=== PATIENT | male | born 1975 | race African-American/Black ===

== ENCOUNTER 2016-12-25 17:57 | Inpatient (IN) ==
[2016-12-25] MEDS ORDERED: Acetaminophen 325 MG TABLET PO PRN (20:08)
[2016-12-25] MEDS ORDERED: *HR* HYDROmorphone (PF) 1 MG/ML SYRINGE IVP PRN (20:08)
[2016-12-25] MEDS ORDERED: *HR* Promethazine 25 MG/ML VIAL IVP PRN (20:08)
[2016-12-25] MEDS ORDERED: Ondansetron 4 MG/2 ML VIAL IVP PRN (20:08)
[2016-12-25] MEDS ORDERED: Naloxone 0.4 MG/ML INJ IVP PRN (20:08)
[2016-12-25] MEDS ORDERED: Dextrose Gel 15 GM PO PRN ×2 (20:14)
[2016-12-25] MEDS ORDERED: D5% in Water 1,000 ML IVC PRN (20:14)
[2016-12-25] MEDS ORDERED: *HR* Dextrose 50 % in Water (Syg) 50 ML SYRINGE IVP PRN (20:14)
[2016-12-25] MEDS: 0.9 % Sodium Chloride 1,000 ML IVC SCH (20:40)
[2016-12-25] MEDS ORDERED: Lidocaine 1% 20 ML MDV INFILT PRN (20:52)
[2016-12-25 20:57] LABS: Basophils # 0.1 K/mcL (0.0-0.2); Basophils % 0.3 %; Eosinophils % 0.1 %; Hematocrit 37.4 % (37.5-50.1); Hemoglobin 12.2 g/dL (12.9-16.9); Immature Granulocytes % 0.8 % (0-4); Immature Platelets 2.4 % (1.1-6.1); Lymphocytes # 1.7 K/mcL (0.6-4.6); Lymphocytes % 9.1 %; Mean Corpuscular HGB Conc 32.6 g/dL (31.6-35.5); Mean Corpuscular Hemoglobin 26.8 pg (28.0-33.3); Mean Corpuscular Volume 82.2 fL (83.0-100.0); Monocytes # 2.4 K/mcL (0.0-1.3); Monocytes % 12.3 %; Neutrophils # 14.8 K/mcL (1.6-8.9); Platelet Count 325 K/mcL (140-400); Red Blood Count 4.55 M/mcL (4.19-5.50); Red Cell Distribution Width 16.8 % (11.5-14.5); Segmented Neutrophils % 77.4 %
[2016-12-25] MEDS ORDERED: *HR* HYDROmorphone 2 MG/ML SYRINGE IVP ONE ×2 (20:58→21:18)
[2016-12-25] MEDS ORDERED: Vancomycin 1,500 MG in D5% in Water 250 ML IVPB SCH (21:00)
[2016-12-25] MEDS: *HR* HYDROcodone/Acet 5/325 mg TABLET PO PRN (21:06)
[2016-12-25 21:07] LABS: INR 1.2; Prothrombin Time 12.7 Seconds (9.4-12.1)
[2016-12-25 21:08] LABS: BUN/Creatinine Ratio 11 (6-26); Blood Urea Nitrogen 10 mg/dL (8-26); Calcium 9.2 mg/dL (8.6-10.8); Carbon Dioxide 28 mEq/L (19-29); Chloride 96 mEq/L (98-109); Glucose 149 mg/dL (70-99); Osmolality,Calculated 282 (280-300); Potassium 4.1 mEq/L (3.5-4.5); Sodium 135 mEq/L (136-145); eGFR For African Americans > 60 (> 60); eGFR For Non-African Americans > 60 (> 60)
[2016-12-25] MEDS: Insulin LISPRO 300 UNITS/3 ML VIAL SQ SCH (21:08)
[2016-12-25] MEDS ORDERED: *HR* HYDROmorphone (PF) 1 MG/ML SYRINGE ONE (21:18)
[2016-12-25 21:22] LABS: Anisocytosis 1+ (Not Present); Large Platelets Present (Not Present); Platelet Estimate Normal (Normal)
[2016-12-25] MEDS ORDERED: *HR* HYDROcodone/Acet 5/325 mg TABLET PO ONE (21:37)
--- NOTE | 2016-12-25 22:07 | Internal Med History&Physical ---
Date of Encounter: 12/25/16 Time of Encounter: 20:30 Assessment and Plan (1) Severe sepsis Current visit: Yes Status: Acute Will admit the pt into tele He does meet severe sepsis criteria Lactic started trending down Cont IV NS @ 150cc/hr Diabetic diet Reviewed Rt foot x ray Spoke to Professor Of Family Medicine who just came up and did bed side I & D..Possible OR in AM NPO after mid night started him on broad spec abx Zosyn and Vanco sent for wound cx f/u on blood cx from [facility] Will get MRI of Rt foot in AM X ray is little concerning for osteomyelitis for me will check ESR and CRP in AM (2) Foot abscess, right Current visit: Yes Status: Acute Professor Of Family Medicine on board (3) Gangrene of right foot Current visit: Yes Status: Acute (4) DM2 (diabetes mellitus, type 2) Current visit: Yes Status: Chronic Placed him on ISS hold PO meds for now check HbA1C in AM Qualifiers: Qualified Code(s): E11.9 - Type 2 diabetes mellitus without complications (5) HTN (hypertension) Current visit: Yes Status: Chronic resumed home meds Qualifiers: Qualified Code(s): I10 - Essential (primary) hypertension (6) HLD (hyperlipidemia) Current visit: Yes Status: Chronic resumed home meds Qualifiers: Qualified Code(s): E78.5 - Hyperlipidemia, unspecified (7) DVT prophylaxis Current visit: Yes Status: Acute on lovenox SQ Internal Medicine - H&P: HPI Chief complaint: Sepsis, Rt foot abscess Admitted From: Emergency Dept Plans for Post Hospital Care: Home History of present illness: Mr. Ortega is a 41 year old male with known PMH of HTN, HLD, DM2, h/o Rt foot chronic healed wound now presented to [facility] with c/o worsening swelling and pain in Rt foot from last 2 days. He did notice swelling in the Rt foot for 10 days which progressively worsened now and unable to bare weight on it. He had X ray foot done at ER which showed large amout of soft tiisue swelling with gas in medial and plantar soft tissue of distal foot. Pt was transferred to our hospital for further care. Pt does c/o 10/10 pain. Denied any trauma. Past Med Surg Social Fam HX - Past Medical History Medical history: diabetes, hyperlipidemia, hypertension Psychiatric history: no psych history - Social History Smoking Status: Current every day smoker Packs per day: 1 Smokeless Tobacco Status: No Alcohol use: none Drug use: opiates, marijuana, IV Drug Use - Family History Mother History Unknown: Yes Adopted: No Living Status: Age at : 76 Cause of : natural causes Internal Medicine - H&P: Meds Lisinopril 30 mg PO 1-2XD 10/21/16 [History] Simvastatin [Zocor] 10 mg PO 1-2XD 10/21/16 [History] cloNIDine HCl [CloNIDine HCl] 0.1 mg PO ONCE 10/21/16 [History] metFORMIN [Glucophage] 1,000 mg PO BIDWM 10/21/16 [History] GlipiZIDE 12/25/16 [History] 3 Allergy/AdvReac Type Severity Reaction Status Date / Time No Known Allergies Allergy Verified 10/21/16 00:47 All Systems PM: A 10-system review of systems was performed and is negative for pertinent findings except as documented above in the HPI. Review of systems: All the systems are reviewed everything is benign except the systems and symptoms I mentioned in the history of present illness - Constitutional Vitals: Temp Pulse Resp BP Pulse Ox 102 F H 105 19 143/80 100 12/25/16 19:40 12/25/16 19:40 12/25/16 19:40 12/25/16 19:40 12/25/16 19:40 General appearance: Present: mild distress (due to pain), A&O X 3, answers questions appropriately - Head Head exam: Present: atraumatic, normal inspection - Neck Neck exam general surgery: Present: supple - Respiratory Respiratory exam: Present: decreased breath sounds. Absent: rales, respiratory distress, rhonchi - Cardiovascular Cardiovascular exam: Present: RRR, +S1, +S2. Absent: systolic murmur - GI/Abdominal GI/Abdominal exam: Present: normal bowel sounds, soft. Absent: distended, rebound, rigid, tenderness - Extremities Exam Extremities exam: Present: tenderness. Absent: calf tenderness, pedal edema Additional comments: He does have 5x6cm size fluid / pus filled fluctuated abscess over Rt foot planter region at the base of 1st and 2nd metatarsal bones. Also noticed chronic healed wound in the middle of swelling. Erythema over dorsum of foot noticed - Expanded Lower Extremities Exam Foot/Toe exam: Present: swelling, tenderness (Rt foot distally) - Back Exam Back exam: Absent: CVA tenderness (L), CVA tenderness (R) - Psychiatric Psychiatric exam: Present: normal affect, normal mood Internal Med - H&P Results - Labs CBC & Chem 7: 12/25/16 20:44 12/25/16 20:44 Labs: Short CBC 12/25/16 Range/Units 20:44 WBC 19.1 H (4.3-11.1) K/mcL Hgb 12.2 L D (12.9-16.9) g/dL Hct 37.4 L (37.5-50.1) % Plt Count 325 (140-400) K/mcL Neutrophils # 14.8 H (1.6-8.9) K/mcL BMP 12/25/16 20:44 Sodium 135 L Potassium 4.1 Chloride 96 L Carbon Dioxide 28 BUN 10 Creatinine 0.95 Glucose 149 H Calcium 9.2
--- NOTE | 2016-12-25 23:08 | Podiatry Consult Note ---
Date of Encounter: 12/25/16 Time of Encounter: 23:06 Assessment and Plan (1) Foot abscess, right Current visit: Yes Status: Acute After reviewing the radiographs and determining that there is gas in the soft tissues the decision was made to perform an incision and drainage immediately at bedside to avoid further necrosis. The patient was instructed that due to the severity of the infection, we would need to perform immediately and drain the site. The patient was agreeable. The procedure discussed was incision and drainage of right foot abscess.Patient was informed of the risks and complications of surgery. These may include but are not limited to the following ; nerve damage, numbness, tingling, RSD/CRPS, loss of motor function, loss of toe, loss of limb, loss of life, ischemia, wound healing issues, infection, scarring, keloid formation, continued pain, arthritis, non-union, mal-union, prominent hardware, displaced hardware, reaction to hardware, the need to remove hardware, bruising, continued limp, the need for future surgery, over correction, under correction, chronic swelling, the need for physical therapy, stiffness of joints, ulceration, slow healing, wound dehiscence, reaction to implant, reaction to sutures. The patient was given the option to seek a second opinion. It was explained that surgery is an art and not an exact science therefore results cannot be guaranteed. All the patients questions and concerns were addressed. Patient agrees to have the surgery despite the possible risks and complications. Absolutely no guarantees were given or implied. A timeout was performed and the site was prepped with Betadine. A posterior tibial nerve block was performed utilizing 10 mL of 1% lidocaine plain. A 15 blade was utilized to incise at the abscess site. Fluid from the abscess was noted to be under pressure and was associated with gas, there was a significantly awful foul odor associated with it as well. The grayish brown fluid drained out and deep cultures were obtained. The epidermis surrounding a 7 cm ulceration was sharply debrided with a 15 blade scalpel. Additional debridement was performed consisting of epidermis, dermis, subcutaneous, fascia. At this time there was not noted to be any bony involvement. After the site was sufficiently opened it was irrigated and Betadine was utilized to further clean the site. Betadine soaked 4 x 4's were applied along with Kerlix. The patient will minimize weightbearing. The patient was instructed that we may have to perform additional surgery tomorrow depending on his improvement. If we do additional surgery tomorrow he will be nothing by mouth once he has had breakfast. We will likely perform additional washout/debridement utilizing the Misonix debrider. Due to the significant tissue loss the patient may require a wound VAC after surgery as well. The patient will likely benefit from long-term antibiotics for which an ID consult will be beneficial. History of Present Illness Chief complaint: Right foot wound HPI: Mr. Ortega is a 41 year old male who relates that he has had increasing pain in his right foot. Patient relates that he is not aware of any open lesion. Patient relates that his right foot began to get more and more swollen and painful. Past Med Surg Social Fam HX - Past Medical History Medical history: diabetes, hyperlipidemia, hypertension Psychiatric history: no psych history - Social History Smoking Status: Current every day smoker Packs per day: 1 Smokeless Tobacco Status: No Alcohol use: none Drug use: opiates, marijuana, IV Drug Use - Family History Mother History Unknown: Yes Adopted: No Living Status: Age at : 76 Cause of : natural causes Medications and Allergies Lisinopril 30 mg PO 1-2XD 10/21/16 [History] Simvastatin [Zocor] 10 mg PO 1-2XD 10/21/16 [History] cloNIDine HCl [CloNIDine HCl] 0.1 mg PO ONCE 10/21/16 [History] metFORMIN [Glucophage] 1,000 mg PO BIDWM 10/21/16 [History] GlipiZIDE 12/25/16 [History] 3 Allergy/AdvReac Type Severity Reaction Status Date / Time No Known Allergies Allergy Verified 10/21/16 00:47 All Systems Reviewed: A 10-system review of systems was performed and is negative for pertinent findings except as documented above in the HPI. Physical Exam - Constitutional Vitals: Temp Pulse Resp BP Pulse Ox 102 F H 105 19 143/80 100 12/25/16 19:40 12/25/16 19:40 12/25/16 19:40 12/25/16 19:40 12/25/16 19:40 Exam: The patient is awake, alert, and oriented 3. Pedal pulses are palpable. Capillary fill time is intact to digits 1 through 5 bilaterally. There are no open lesions, abrasions, or ulcerations. Sensation is significantly diminished to bilateral lower extremities although there is hypersensitivity around the infection site consistent with infection. There is noted to be gas in the soft tissue sub-first met head. Approximately 7 cm in diameter and extending into the superficial skin planes. After the site was debrided there is noted to be significant necrotic tissue and grayish brown discharge with significant foul odor. The final wound size measured approximately 7 cm in diameter. Full- thickness in depth. Results - Labs Result Diagrams: 12/25/16 20:44 12/25/16 20:44 Labs: Abnormal lab results WBC 19.1 K/mcL (4.3-11.1) H 12/25/16 20:44 Hgb 12.2 g/dL (12.9-16.9) L D 12/25/16 20:44 Hct 37.4 % (37.5-50.1) L 12/25/16 20:44 MCV 82.2 fL (83.0-100.0) L 12/25/16 20:44 MCH 26.8 pg (28.0-33.3) L 12/25/16 20:44 RDW 16.8 % (11.5-14.5) H 12/25/16 20:44 MPV 9.0 fL (9.4-12.4) L 12/25/16 20:44 Neutrophils # 14.8 K/mcL (1.6-8.9) H 12/25/16 20:44 Monocytes # 2.4 K/mcL (0.0-1.3) H 12/25/16 20:44 Large Platelets Present (Not Present) A 12/25/16 20:44 Anisocytosis 1+ (Not Present) A 12/25/16 20:44 PT 12.7 Seconds (9.4-12.1) H 12/25/16 20:44 Sodium 135 mEq/L (136-145) L 12/25/16 20:44 Chloride 96 mEq/L (98-109) L 12/25/16 20:44 Glucose 149 mg/dL (70-99) H 12/25/16 20:44 Lactic Acid 3.2 mmol/L (0.5-2.2) H 12/25/16 20:44 Magnesium 1.1 mg/dL (1.6-2.6) L 12/25/16 20:44 H & H 12/25/16 Range/Units 20:44 Hgb 12.2 L D (12.9-16.9) g/dL Hct 37.4 L (37.5-50.1) % All other labs normal. Consult Discharge Plan - Plan Referrals: Nargis Cruz, PROPERTY MANAGEMENT SPECIALIST [Primary Care Provider] -
[2016-12-26] MEDS: *HR* HYDROmorphone 2 MG/ML SYRINGE IVP PRN ×4 (01:13→23:20)
[2016-12-26] MEDS: Piperacillin/Tazobactam 3.375 GM in D5% in Water (Mini-Bag+) 100 ML IVPB SCH ×3 (01:13→22:56)
[2016-12-26] MEDS: *HR* HYDROcodone/Acet 5/325 mg TABLET PO PRN ×3 (02:28→15:24)
[2016-12-26] MEDS: Vancomycin 1,500 MG in D5% in Water 250 ML IVPB SCH ×2 (03:35→18:00)
[2016-12-26] MEDS: 0.9 % Sodium Chloride 1,000 ML IVC SCH ×2 (03:36→15:58)
[2016-12-26 03:43] LABS: Basophils # 0.1 K/mcL (0.0-0.2); Basophils % 0.3 %; Eosinophils % 0.1 %; Hematocrit 35.3 % (37.5-50.1); Hemoglobin 11.6 g/dL (12.9-16.9); Immature Granulocytes % 0.5 % (0-4); Lymphocytes # 1.9 K/mcL (0.6-4.6); Lymphocytes % 10.1 %; Mean Corpuscular HGB Conc 32.9 g/dL (31.6-35.5); Mean Corpuscular Hemoglobin 26.9 pg (28.0-33.3); Mean Corpuscular Volume 81.9 fL (83.0-100.0); Mean Platelet Volume 9.4 fL (9.4-12.4); Monocytes # 2.5 K/mcL (0.0-1.3); Monocytes % 13.9 %; Neutrophils # 13.8 K/mcL (1.6-8.9); Platelet Count 302 K/mcL (140-400); Red Blood Count 4.31 M/mcL (4.19-5.50); Red Cell Distribution Width 16.7 % (11.5-14.5); Segmented Neutrophils % 75.1 %
[2016-12-26 03:58] LABS: BUN/Creatinine Ratio 12 (6-26); Blood Urea Nitrogen 10 mg/dL (8-26); Calcium 8.9 mg/dL (8.6-10.8); Carbon Dioxide 27 mEq/L (19-29); Chloride 98 mEq/L (98-109); Glucose 146 mg/dL (70-99); Osmolality,Calculated 278 (280-300); Potassium 3.7 mEq/L (3.5-4.5); Sodium 133 mEq/L (136-145); eGFR For African Americans > 60 (> 60); eGFR For Non-African Americans > 60 (> 60)
[2016-12-26] MEDS: Famotidine 20 MG/2 ML VIAL IVP SCH ×2 (06:07→18:00)
[2016-12-26] MEDS: *HR* Enoxaparin 40 MG/0.4 ML SYRINGE SQ SCH (06:07)
[2016-12-26] MEDS ORDERED: Magnesium Sulfate 2 GM in D5% in Water 100 ML IVPB ONE (08:31)
[2016-12-26] MEDS: Insulin LISPRO 300 UNITS/3 ML VIAL SQ SCH ×5 (08:40→23:33)
--- NOTE | 2016-12-26 10:38 | Internal Med Progress Note ---
<Antonio Moreira - Last Filed: 12/26/16 15:11> Date of Encounter: 12/26/16 Time of Encounter: 09:00 - Assessment and plan (1) Severe sepsis Current Visit: Yes Status: Acute Assessment and plan: Severe sepsis secondary to right foot gangrene and abscess Blood cell count 18.3, temp 100.7, heart rate 91 over night Lactic acid is trending downward. Continued IV normal saline but decrease to 75ml/hr Continue IV Zosyn and vancomycin Infectious disease and podiatry on board (2) Foot abscess, right Current Visit: Yes Status: Acute Assessment and plan: Right foot abscess status post incision and drainage See below for further plan (3) Gangrene of right foot Current Visit: Yes Status: Acute Assessment and plan: Gangrene of right foot secondary to infectious abscess, status post incision and drainage, cultures pending Podiatry consultation following Infectious disease consultation following Podiatry and tends to take the patient for surgical debridement later this evening We will continue IV antibiotics and fluids at this time (4) DM2 (diabetes mellitus, type 2) Current Visit: Yes Status: Chronic Assessment and plan: Diabetes mellitus type 2, well-controlled at this time Continue current regimen Check A1c in the morning Qualifiers: Diabetes mellitus complication status: with skin complications Diabetes mellitus complication detail: with other skin complication Diabetes mellitus nursing home insulin use: without nursing home use Qualified Code(s): E11.628 - Type 2 diabetes mellitus with other skin complications; L97.509 - Non-pressure chronic ulcer of other part of unspecified foot with unspecified severity; L97.509 - Non-pressure chronic ulcer of other part of unspecified foot with unspecified severity; L97.509 - Non-pressure chronic ulcer of other part of unspecified foot with unspecified severity; L97.509 - Non-pressure chronic ulcer of other part of unspecified foot with unspecified severity (5) HTN (hypertension) Current Visit: Yes Status: Chronic Assessment and plan: Currently treated on home medication regimen We will monitor to determine if hypertension returns as sepsis resolves Modify as necessary Qualifiers: Hypertension type: essential hypertension Qualified Code(s): I10 - Essential (primary) hypertension (6) DVT prophylaxis Current Visit: Yes Status: Acute Assessment and plan: Subcutaneous Lovenox - Subjective Interval history: The patient is resting comfortably in bed eating at the time of examination. He states this pain has been more controlled this morning than it was previously , however he is still feeling ill. He does mention that his appetite has returned. He has no acute complaints this morning. - Constitutional Vitals: Temp Pulse Resp BP Pulse Ox 100.7 F H 91 16 140/83 95 12/26/16 07:32 12/26/16 07:32 12/26/16 07:32 12/26/16 07:32 12/26/16 07:32 General appearance: Present: A&O X 3, no acute distress, answers questions appropriately Exam: - Head Head exam: Present: atraumatic, normal inspection - Neck Neck exam general surgery: Present: supple - Respiratory Respiratory exam: Present: decreased breath sounds. Absent: rales, respiratory distress, rhonchi - Cardiovascular Cardiovascular exam: Present: RRR, +S1, +S2. Absent: systolic murmur - GI/Abdominal GI/Abdominal exam: Present: normal bowel sounds, soft. Absent: distended, rebound, rigid, tenderness - Extremities Exam Extremities exam: Present: tenderness. Absent: calf tenderness, pedal edema Additional comments: He does have 5x6cm size fluid / pus filled fluctuated abscess over Rt foot planter region at the base of 1st and 2nd metatarsal bones. Also noticed chronic healed wound in the middle of swelling. Erythema over dorsum of foot noticed - Expanded Lower Extremities Exam Foot/Toe exam: Present: swelling, tenderness (Rt foot distally) - Back Exam Back exam: Absent: CVA tenderness (L), CVA tenderness (R) - Psychiatric Psychiatric exam: Present: normal affect, normal mood Internal Medicine: Result - Labs CBC & Chem 7: 12/26/16 03:32 12/26/16 03:32 Labs: Short CBC 12/25/16 12/26/16 Range/Units 20:44 03:32 WBC 19.1 H 18.3 H (4.3-11.1) K/mcL Hgb 12.2 L D 11.6 L (12.9-16.9) g/dL Hct 37.4 L 35.3 L (37.5-50.1) % Plt Count 325 302 (140-400) K/mcL Neutrophils # 14.8 H 13.8 H (1.6-8.9) K/mcL BMP 12/25/16 12/26/16 20:44 03:32 Sodium 135 L 133 L Potassium 4.1 3.7 Chloride 96 L 98 Carbon Dioxide 28 27 BUN 10 10 Creatinine 0.95 0.84 Glucose 149 H 146 H Calcium 9.2 8.9 - ABG Interpretation ABG results: PT/INR, D-dimer PT 12.7 Seconds (9.4-12.1) H 12/25/16 20:44 - VTE Documentation of Mechanical Device: Intermittent pneumatic compression device Consult Discharge Plan - Plan Referrals: Nargis Cruz CNP [Primary Care Provider] - <Ayan Vazquez - Last Filed: 12/26/16 16:47> Date of Encounter: 12/26/16 - Assessment and plan (1) Foot abscess, right Current Visit: Yes Status: Acute (2) Gangrene of right foot Current Visit: Yes Status: Acute (3) Severe sepsis Current Visit: Yes Status: Acute (4) DM2 (diabetes mellitus, type 2) Current Visit: Yes Status: Chronic Qualifiers: Diabetes mellitus complication status: with skin complications Diabetes mellitus complication detail: with foot ulcer Diabetes mellitus nursing home insulin use: without nursing home use Qualified Code(s): E11.621 - Type 2 diabetes mellitus with foot ulcer; L97.509 - Non-pressure chronic ulcer of other part of unspecified foot with unspecified severity; L97.509 - Non- pressure chronic ulcer of other part of unspecified foot with unspecified severity; L97.509 - Non-pressure chronic ulcer of other part of unspecified foot with unspecified severity; L97.509 - Non-pressure chronic ulcer of other part of unspecified foot with unspecified severity (5) HLD (hyperlipidemia) Current Visit: Yes Status: Chronic Qualifiers: Hyperlipidemia type: mixed hyperlipidemia Qualified Code(s): E78.2 - Mixed hyperlipidemia (6) HTN (hypertension) Current Visit: Yes Status: Chronic Qualifiers: Hypertension type: essential hypertension Qualified Code(s): I10 - Essential (primary) hypertension (7) History of illicit drug use Current Visit: Yes Status: Acute - Constitutional Vitals: Temp Pulse Resp BP Pulse Ox 98.3 F 82 12 144/75 98 12/26/16 14:21 12/26/16 14:21 12/26/16 14:21 12/26/16 14:21 12/26/16 14:21 Internal Medicine: Result - Labs CBC & Chem 7: 12/26/16 03:32 12/26/16 03:32 Labs: Short CBC 12/25/16 12/26/16 Range/Units 20:44 03:32 WBC 19.1 H 18.3 H (4.3-11.1) K/mcL Hgb 12.2 L D 11.6 L (12.9-16.9) g/dL Hct 37.4 L 35.3 L (37.5-50.1) % Plt Count 325 302 (140-400) K/mcL Neutrophils # 14.8 H 13.8 H (1.6-8.9) K/mcL BMP 12/25/16 12/26/16 20:44 03:32 Sodium 135 L 133 L Potassium 4.1 3.7 Chloride 96 L 98 Carbon Dioxide 28 27 BUN 10 10 Creatinine 0.95 0.84 Glucose 149 H 146 H Calcium 9.2 8.9 - ABG Interpretation ABG results: PT/INR, D-dimer PT 12.7 Seconds (9.4-12.1) H 12/25/16 20:44 - Attending Attestation I examined this patient and my medical decision-making was reviewed with the Resident Physician on 12/26/16. I agree with the documented findings, disposition and treatment plan as described except to the extent set forth below. Mr Ortega is currently admitted for gangrene of his foot. He is to go to OR today. He remains moderate to high risk due to the potential for worsening infectious status. Mr Ortega is having some pain. He had bedside I&D last night and to go to OR today. No fever or chills at this time. No nausea. Exam Alert Comfortable Mucus membrane dry Heart reg No wheeze Abd soft Dressing intact I/P 1. Gangrene 2. Diabetes Further diagnoses and plan as above.
--- NOTE | 2016-12-26 12:33 | Infectious Disease Consult ---
Date of Encounter: 12/26/16 Time of Encounter: 12:31 Assessment and Plan (1) Severe sepsis Status: Acute Assessment and plan: The patient had three SIRS criteria plus lactic acidosis on admission. Likely secondary to right foot gangrene/abscess. Improved. The patient was febrile overnight, but is less tachycardic. WBC is trending down. Lactic acidosis is improved. Blood cultures drawn 12/25/16 at [facility] are pending x 2 sets. (2) Gangrene of right foot Status: Acute Assessment and plan: Location: Plantar aspect, submetatarsal #1, right foot. Causative organism unclear. Etiology unclear. The patient denies trauma or open lesion prior to admission. X-ray of the right foot showed extensive soft tissue gas. ESR > 130. CRP 242. Podiatry consulted. Status post bedside I & D. Cultures obtained and are pending. Plans to take the patient to the OR later today for repeat I & D. Continue wound care per podiatry's recommendations. Continue Zosyn 3.375 grams IV Q8H. Continue Vancomycin IV. Pharmacy to dose. Goal trough ~15. Duration of treatment depends on the clinical picture. Monitor renal function and for drug toxicity and dose-adjust antibiotics. (3) Foot abscess, right Status: Acute Assessment and plan: Location: Plantar aspect right foot. Causative organism unclear. Status post bedside I & D. Cultures are pending. Podiatry consulted and following. Continue antibiotics as above. (4) DM2 (diabetes mellitus, type 2) Status: Chronic Assessment and plan: Controlled with oral medications at home. Check HgbA1C. Recommend aggressive glucose monitoring and control to promote wound healing and prevent re-infection. Management per the primary team. Qualifiers: Qualified Code(s): E11.621 - Type 2 diabetes mellitus with foot ulcer; L97.509 - Non-pressure chronic ulcer of other part of unspecified foot with unspecified severity; L97.509 - Non-pressure chronic ulcer of other part of unspecified foot with unspecified severity; L97.509 - Non-pressure chronic ulcer of other part of unspecified foot with unspecified severity; L97.509 - Non -pressure chronic ulcer of other part of unspecified foot with unspecified severity (5) HTN (hypertension) Status: Chronic Qualifiers: Qualified Code(s): I10 - Essential (primary) hypertension (6) HLD (hyperlipidemia) Status: Chronic Qualifiers: Qualified Code(s): E78.2 - Mixed hyperlipidemia (7) History of illicit drug use Status: Acute Assessment and plan: Patient reports history of IV DU with last use 6 months ago. Check hepatitis profile. Check HIV. Infectious Disease HPI - Data of Consult Patient: new to practice Consult date: 12/26/16 Requesting Physician: Ayan Vazquez DO Primary Care Provider: Govind De - Consult Narrative Reason for consult: Right foot infection History of present illness: Mr. Ortega is a 41 year old male with a past medical history of diabetes mellitus, HTN, and hyperlipidemia. The patient was admitted to the hospital 12/25 for right foot infection. We are consulted 12/26/16 for further recommendations regarding the right foot infection. The patient is a 41 year old male with a past medical history as stated above. The patient presented to [facility] ED on the day of admission with complaints of swelling and pain in the right foot that started 2 days prior to admission. He denies any known trauma or injury. Upon arrival to the ER, the patient was afebrile, but he was tachycardic and had neutrophilic leukocytosis. Additional labs revealed an elevated lactic acid. Xray of the right foot showed a large amount of soft tissue swelling and gas. Blood cultures were obtained x 2 sets and the patient was started on IV Vancomycin and Zosyn. He was transferred here for further evaluation. Since admission, the patient has been intermittently febrile. Tachycardia has improved. WBC is trending down. Lactic acidosis has improved. The patient has been evaluated by podiatry. A bedside I & D was done which revealed a large amount of foul-smelling, brown drainage. The patient is scheduled to go to the OR later today. Wound cultures were obtained and are pending. Currently, the patient is on IV Vancomycin and IV Zosyn. We have been asked to evaluate and make further recommendations. During my exam today, the patient complains of pain in the right foot. He denies any known trauma and is unsure how the infection started. He denies any symptoms to indicate tinea pedis. He states that there were no open lesions on the foot until he had the bedside I & D. He denies any fevers, chills, or rigors. He denies headache or neck pain. He congestion, earache, or sore throat. He denies chest pain, shortness of breath, or cough. He denies nausea, vomiting, diarrhea, or constipation. He denies abdominal pain, but states he has had a poor appetite for several days. He denies urinary complaints. He denies pain in any of his other extremities or back. He states his blood sugars were running about 140 prior to admission. He states he has a history of IV heroine use about six months ago. He states he is unsure if he has been diagnosed with hepatitis in the past. He denies any history of HIV. He does report that he used to share needles when he used IV drugs. CC: Ayan Vazquez, DO Past Med Surg Social Fam HX - Past Medical History Attestation: Yes The following information was validated with the patient. Source: patient, old records reviewed, nursing notes reviewed Medical history: diabetes (Oral medications), hyperlipidemia, hypertension Psychiatric history: no psych history - Past Surgical History Surgical History: no surgical history - Social History Smoking Status: Current every day smoker Packs per day: 0.5 Smokeless Tobacco Status: No Alcohol use: none Drug use: opiates, marijuana, IV Drug Use (reports last use was 6 months ago) Occupational status: employed Current living situation: Home - Independent Activity Level: Independent ambulation Recent Out of Country Travel Within the Last 8 Weeks: No Exposure or Possible Exposure to Illness During Travel: No - Family History Mother History Unknown: Yes Adopted: No Living Status: Age at : 76 Cause of : natural causes Infectious Disease-CN:Meds metFORMIN [Glucophage] 1,000 mg PO BIDWM 10/21/16 [History] Glimepiride [Amaryl] 4 mg PO DAILY 12/26/16 [History] Lisinopril [Zestril] 20 mg PO BID 12/26/16 [History] Simvastatin [Zocor] 20 mg PO HS 12/26/16 [History] Acetaminophen [Tylenol] 650 mg PO Q6HR PRN tablet 12/27/16 [Rx] Cefuroxime PO [Ceftin] 500 mg PO Q12HR 14 Days #28 tablet 12/27/16 [Rx] 3 Allergy/AdvReac Type Severity Reaction Status Date / Time No Known Allergies Allergy Verified 10/21/16 00:47 All systems: reviewed and no additional remarkable complaints except as stated Exam - Constitutional Vitals: Temp Pulse Resp BP Pulse Ox 98.6 F 88 12 123/60 95 12/26/16 11:26 12/26/16 11:26 12/26/16 11:26 12/26/16 11:26 12/26/16 11:26 General appearance: average body habitus, cooperative, no acute distress - Head Head exam: Present: atraumatic, normal inspection, normocephalic - Eye Eye exam: Present: EOMI, normal appearance, PERRL Pupils: Present: normal accommodation - ENT ENT exam: Present: mucous membranes moist - Neck Neck exam: Present: normal inspection - Respiratory Respiratory exam: Present: CTAB. Absent: rales, respiratory distress, rhonchi, wheezes - Cardiovascular Cardiovascular exam: Present: RRR, +S1, +S2 - GI/Abdominal GI/Abdominal exam: Present: normal bowel sounds, soft. Absent: distended, tenderness - Extremities Exam Extremities exam: Present: pedal edema (1+ RLE), tenderness (plantar aspect submet #1 right foot) - Expanded Lower Extremity Exam 1 - I & D site, brown serous drainage, foul odor. - Neurological Exam Neurological exam: Present: alert, oriented X3, no focal deficits - Psychiatric Psychiatric exam: Present: normal affect, normal mood - Skin Skin exam: Present: dry, intact, normal color, warm Infectious Disease CN: Results - Labs CBC & Chem 7: 12/27/16 05:41 12/27/16 05:41 - VTE Documentation of Mechanical Device: Intermittent pneumatic compression device Consult Discharge Plan - Plan Additional Instructions: Patient will need follow-up with podiatry as soon as possible Referrals: Nargis Cruz GLOBAL SALES MANAGER [Primary Care Provider] - Prescriptions: Cefuroxime PO [Ceftin] 500 mg PO Q12HR 14 Days #28 tablet - Attending Attestation I examined this patient and my medical decision-making was reviewed with the Resident Physician. I agree with the documented findings, disposition and treatment plan as described except to the extent set forth below. This is an addendum to original report dictated by Lupe Peres CNP. Please refer to Hien olivares for full detail. Patient is a 41-year-old gentleman with past medical history mentioned below including diabetes mellitus type 2 that was diagnosed in 2002 and hepatitis C secondary to history of IV drug use came in with right foot infection on . Patient workup has been unrevealing so far. All cultures have been pending. Patient had an bedside I&D by Dr. browning and cultures are pending. Blood cultures so far no growth. Patient also had an x-ray done which showed a large amount of soft tissue swelling and gas with no bony destruction. Patient was started on broad-spectrum antibiotics including vancomycin and Zosyn were asked to evaluate the patient and make further recommendations at. Since admission patient has been having intermittent fever. Patient did have significant leukocytosis and lactic acidosis that has improved and normalized. Patients physical exam is really unremarkable except for the cellulitis and the I&D site. Patient otherwise is hungry because he is nothing by mouth for possible procedure today. At this point we will continue with spectrum antibiotics including IV vancomycin and IV Zosyn. Dose adjust antibiotics based on his creatinine clearance. Goal vancomycin trough around 15. Await cultures to finalize. Patient is going for I&D later and we will recommend deep cultures. Monitor labs and for drug toxicity. Duration of treatment is probably dependent on the clinical picture.
--- NOTE | 2016-12-26 15:48 | Anesthesia Evaluation PreOp ---
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: Denies Any Significant HX Other Medical History: Diabetes Type II Anesthesia History: No Prior Anesthetic Complications (never underwent anesthesia previously) Alcohol Use: none Drug use: opiates, marijuana, IV Drug Use (reports last use was 6 months ago) Medications and Allergies metFORMIN [Glucophage] 1,000 mg PO BIDWM 10/21/16 [History] Glimepiride [Amaryl] 4 mg PO DAILY 12/26/16 [History] Lisinopril [Zestril] 20 mg PO BID 12/26/16 [History] Simvastatin [Zocor] 20 mg PO HS 12/26/16 [History] 3 Allergy/AdvReac Type Severity Reaction Status Date / Time No Known Allergies Allergy Verified 10/21/16 00:47 - Meds/Allergy Pre-op Review Medications Reviewed: Yes Allergies Reviewed: Yes Beta Blockers on Current Med List: No Anesthesia Results - Labs 12/26/16 03:32 12/26/16 03:32 - Imaging EKG: report reviewed, image reviewed (SINUS TACHYCARDIA NONSPECIFIC T-WAVE ABNORMALITY ABNORMAL RHYTHM ECG) Anesthesia Exam Last Vital Signs Temp 98.3 F 12/26/16 14:21 Pulse 82 12/26/16 14:21 Resp 12 12/26/16 14:21 BP 144/75 12/26/16 14:21 Pulse Ox 98 12/26/16 14:21 Weight: 101 kg NPO (# of Hours): > 8 hrs - HEENT Pupil (Motor): Pupils equal, EOMI Mallampati: II Teeth: Normal Oral Opening: Greater than 3 - SURFBOARD MAKER LOC: Oriented - Cardiac Rhythm: Regular Murmur: None - Pulmonary Breath Sounds: bilateral Clear Respiratory Effort: Symmetrical Anesthesia Assess/Plan ASA Score: 3 Modified [place] Scale for Level of Consciousness: Cooperative, oriented, and tranquil Anesthetic Plan: General Monitoring Plan: Standard Monitors Recovery Plan: PACU
[2016-12-26] MEDS ORDERED: Bupivacaine/Clonidine Syringe 1 EACH SYRINGE ONE (15:53)
[2016-12-26] MEDS ORDERED: *HR* Midazolam HCl 2 MG/2 ML VIAL ONE ×2 (16:13→16:17)
[2016-12-26] MEDS ORDERED: *HR* FentaNYL (PF) 100 MCG/2 ML VIAL ONE (16:13)
[2016-12-26] MEDS ORDERED: *HR* Propofol 200 MG/20 ML VIAL IVP ONE (16:17)
[2016-12-26] MEDS ORDERED: Lidocaine -MPF 2% 2 ML VIAL ONE (16:18)
[2016-12-26 16:37] LABS: HIV-1&2 Antibody & p24 Ag Nonreactive (Nonreactive); Hepatitis A Antibody IgM Nonreactive (Nonreactive); Hepatitis B Core IgM Nonreactive (Nonreactive); Hepatitis B Surface Antigen Nonreactive (Nonreactive)
[2016-12-26 16:42] LABS: Hepatitis C Virus Antibody Reactive (Nonreactive)
[2016-12-26] MEDS ORDERED: Ondansetron 4 MG/2 ML VIAL ONE (16:51)
[2016-12-26] MEDS ORDERED: Dexamethasone 4 MG/ML VIAL ONE (16:51)
[2016-12-26] MEDS ORDERED: *HR* HYDROmorphone 2 MG/ML SYRINGE ONE (17:28)
[2016-12-26] MEDS ORDERED: *HR* HYDROmorphone (PF) 1 MG/ML SYRINGE IVP PRN (17:31)
[2016-12-26] MEDS ORDERED: *HR* Promethazine 25 MG/ML VIAL IVP PRN (17:31)
--- NOTE | 2016-12-26 18:33 | Anesthesia Evaluation Post Op ---
Date of Encounter: 12/26/16 Time of Encounter: 18:32 - Vital Signs Vital Signs: Last Vital Signs Temp 99.1 F 12/26/16 18:23 Pulse 86 12/26/16 18:23 Resp 15 12/26/16 18:23 BP 151/93 12/26/16 18:23 Pulse Ox 100 12/26/16 18:23 - Lungs Lungs: Clear Ascult./Percussion - Airway Airway: Non-obstructed - Cardiovascular Regular Rate - Mental Status Mental Status: Alert & Oriented, Answers Appropriately - Pain Pain Scale: 2 - Nausea Vomiting Nausea Vomiting: Not Present - Hydration Hydration: NPO - Discharge PostOp Status: Transfer Patient to floor
--- NOTE | 2016-12-26 22:30 | Operative Note ---
Date of procedure: 12/26/16 Pre-op diagnosis: Deep abscess right foot Post-op diagnosis: same Procedure: Incision and drainage, deep abscess, right foot Complications: None Anesthesia: DONALD Surgeon: Edilberto Patton Estimated blood loss (cc): 20 Specimen: Cultures were obtained from the wound/abscess site Condition: stable Disposition: PACU Procedure in Detail: The patient was administered IV antibiotics. The patient was transported to the operative room and placed on operating table. Following anesthesia the extremity was scrubbed prepped and draped in the usual aseptic fashion. A timeout was performed. An incision was made and deepened through subcutaneous tissue with care taken to identify and retract all vital neurovascular structures. There was additional necrotic tissue from the night previous, when the bedside incision and drainage was performed. In the operating room with the patient under anesthesia and more adequate dissection was performed. A linear incision was made from the first metatarsal phalangeal joint plantarly along the plantar aspect of the foot to the level of the midfoot. The incision was approximately 10 cm long and had significant amounts of necrotic/nonviable/ischemic tissue. The tissue and purulence had an extremely foul odor. Purulence was expressed from the area deep to the plantar fascia, along the plantar fascia, along the first interspace, between these in an plantar fascia along the lateral aspect of the foot. After adequate cultures were obtained the misonix debrider was utilized to debride the nonviable/necrotic tissue. At this time due to additional purulence a wound VAC was not applied and we will likely need to pursue additional washouts after we reexamined the patient in 1-2 days. The incision site was irrigated with pulse irrigation with copious amounts of normal saline and closed in a layered fashion. A dry sterile dressing was applied. The site was packed deep with iodoform packing. The patient tolerated the procedure and anesthesia well and was transported to the recovery room with vital signs stable and vascular status intact to both feet. The patient will be readmitted to the floor per anesthesia. The patient will keep the dressings clean, dry, intact until the follow-up appointment in 1- 2 weeks. The patient will remain nonweightbearing to the right foot. The patient may need additional washouts on . The patient will require at least 6 weeks of IV antibiotic therapy. The packing will need to be changed every 6 hours.
[2016-12-27] MEDS: *HR* HYDROcodone/Acet 5/325 mg TABLET PO PRN ×3 (00:51→12:38)
[2016-12-27] MEDS: Piperacillin/Tazobactam 3.375 GM in D5% in Water (Mini-Bag+) 100 ML IVPB SCH ×3 (01:00→12:43)
[2016-12-27] MEDS: 0.9 % Sodium Chloride 1,000 ML IVC SCH (01:25)
[2016-12-27] MEDS: *HR* HYDROmorphone 2 MG/ML SYRINGE IVP PRN ×2 (04:36→10:58)
--- NOTE | 2016-12-27 05:37 | Internal Med Progress Note ---
<Gordon Ram P - Last Filed: 12/27/16 14:04> Date of Encounter: 12/27/16 - Constitutional Vitals: Temp Pulse Resp BP Pulse Ox 97.6 F 79 12 148/73 97 12/27/16 11:12 12/27/16 11:12 12/27/16 11:12 12/27/16 11:12 12/27/16 11:12 Internal Medicine: Result - Labs CBC & Chem 7: 12/27/16 05:41 12/27/16 05:41 Labs: Short CBC 12/27/16 Range/Units 05:41 WBC 18.8 H (4.3-11.1) K/mcL Hgb 13.2 D (12.9-16.9) g/dL Hct 39.3 (37.5-50.1) % Plt Count 353 (140-400) K/mcL Neutrophils # 17.0 H (1.6-8.9) K/mcL BMP 12/27/16 05:41 Sodium 133 L Potassium 4.8 H D Chloride 100 Carbon Dioxide 24 BUN 12 Creatinine 0.86 Glucose 275 H Calcium 9.6 - ABG Interpretation ABG results: PT/INR, D-dimer PT 12.7 Seconds (9.4-12.1) H 12/25/16 20:44 - Impressions Impressions Foot MRI 12/26/16 22:17 IMPRESSION: 1. Soft tissue defect along the plantar surface of the forefoot at the level of the 1st and 2nd metatarsal diaphysis. Heterogeneous material (3.1 x 1.7 x 1.6 cm) within the soft tissue defect may represent packing material. No convincing abscess or formed fluid collection. 2. No MRI evidence of osteomyelitis. 3. Extensive subcutaneous edema of the foot dorsum with edema and enhancement of the intrinsic foot musculature suggestive of myositis. D/ / 12/26/2016 22:58:25 Tomi Elmore MD / Elsa Larson Interpreting Provider: Tomi Elmore MD Consult Discharge Plan - Plan Referrals: Nargis Cruz, STUDENT NURSE [Primary Care Provider] - - Attending Attestation I examined this patient and my medical decision-making was reviewed with the Resident Physician. I agree with the documented findings, disposition and treatment plan as described except to the extent set forth below. Patient seen and examined. Chart reviewed. Patient admitted with foot abscess. Podiatry on the board. Unlikely osteomyelitis. Infectious disease on board. Plan: We will follow the recommendations from podiatry/infectious disease. <Antonio Moreira - Last Filed: 12/27/16 16:33> Date of Encounter: 12/27/16 Time of Encounter: 08:15 - Assessment and plan (1) Severe sepsis Current Visit: Yes Status: Acute Assessment and plan: Severe sepsis secondary to right foot gangrene and abscess, resolved WBC 18.8, TMax 99.1, HR <90 Patient is able to tolerate oral hydration Continue IV Zosyn and vancomycin day 2 Infectious disease and podiatry on board (2) Foot abscess, right Current Visit: Yes Status: Acute Assessment and plan: Right foot abscess status post incision and drainage See below for further plan (3) Gangrene of right foot Current Visit: Yes Status: Acute Assessment and plan: Gangrene of right foot secondary to infectious abscess, status post incision and drainage, cultures pending Podiatry consultation following, took the patient for debridement yesterday without complication Infectious disease consultation following MRI is negative for osteomylitis We will continue IV antibiotics and fluids at this time Patient should refrain from placing weight or pressure on the foot (4) DM2 (diabetes mellitus, type 2) Current Visit: Yes Status: Chronic Assessment and plan: Diabetes mellitus type 2, well-controlled at this time Continue current regimen A1C pending Qualifiers: Diabetes mellitus complication status: with skin complications Diabetes mellitus complication detail: with foot ulcer 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 insulin use: without intermediate use Qualified Code(s): E11.621 - Type 2 diabetes mellitus with foot ulcer; L97.509 - Non-pressure chronic ulcer of other part of unspecified foot with unspecified severity; L97.509 - Non- pressure chronic ulcer of other part of unspecified foot with unspecified severity; L97.509 - Non-pressure chronic ulcer of other part of unspecified foot with unspecified severity; L97.509 - Non-pressure chronic ulcer of other part of unspecified foot with unspecified severity (5) HTN (hypertension) Current Visit: Yes Status: Chronic Assessment and plan: Currently treated on home medication regimen BP did elevate on two occasions in past 24hr. Will track changes in blood pressure as infection resolves, may make changes to regimen Modify as necessary Qualifiers: Hypertension type: essential hypertension Qualified Code(s): I10 - Essential (primary) hypertension (6) DVT prophylaxis Current Visit: Yes Status: Acute Assessment and plan: Subcutaneous Lovenox - Subjective Interval history: The patient is resting comfortably in bed eating at the time of examination. He says that he experienced significant bleeding overnight associated with the ulcer, and pain. When asked what caused it or made it worse, the patient stated that placing pressure on it by putting it on the ground caused most of it. I spoke with the patient about instructions not to place his feet on the ground as directed by podiatry, but he was dismissive. - Constitutional Vitals: Temp Pulse Resp BP Pulse Ox 98.3 F 83 15 119/76 96 12/27/16 03:54 12/27/16 03:54 12/27/16 03:54 12/27/16 03:54 12/27/16 03:54 General appearance: Present: A&O X 3, no acute distress, answers questions appropriately Exam: - Head Head exam: Present: atraumatic, normal inspection - Neck Neck exam general surgery: Present: supple - Respiratory Respiratory exam: Present: decreased breath sounds. Absent: rales, respiratory distress, rhonchi - Cardiovascular Cardiovascular exam: Present: RRR, +S1, +S2. Absent: systolic murmur - GI/Abdominal GI/Abdominal exam: Present: normal bowel sounds, soft. Absent: distended, rebound, rigid, tenderness - Extremities Exam Extremities exam: Present: tenderness. Absent: calf tenderness, pedal edema Additional comments: The foot is dressed with guaze that has blood soaking through. There is additional dressing overtop. There is erythema and warmth extending to 4 inches proximal of the ankle. - Expanded Lower Extremities Exam Foot/Toe exam: Present: swelling, tenderness (Rt foot distally) - Back Exam Back exam: Absent: CVA tenderness (L), CVA tenderness (R) - Psychiatric Psychiatric exam: Present: normal affect, normal mood Internal Medicine: Result - Labs CBC & Chem 7: 12/27/16 05:41 12/27/16 05:41 - ABG Interpretation ABG results: PT/INR, D-dimer PT 12.7 Seconds (9.4-12.1) H 10/08/17 20:44 - Impressions Impressions Foot MRI 12/26/16 22:17 IMPRESSION: 1. Soft tissue defect along the plantar surface of the forefoot at the level of the 1st and 2nd metatarsal diaphysis. Heterogeneous material (3.1 x 1.7 x 1.6 cm) within the soft tissue defect may represent packing material. No convincing abscess or formed fluid collection. 2. No MRI evidence of osteomyelitis. 3. Extensive subcutaneous edema of the foot dorsum with edema and enhancement of the intrinsic foot musculature suggestive of myositis. D/ / 12/26/2016 22:58:25 Tomi Elmore MD / Elsa Larson Interpreting Provider: Tomi Elmore MD - VTE Documentation of Mechanical Device: Intermittent pneumatic compression device
[2016-12-27 05:57] LABS: Basophils % 0.2 %; Hematocrit 39.3 % (37.5-50.1); Hemoglobin 13.2 g/dL (12.9-16.9); Immature Granulocytes % 0.9 % (0-4); Lymphocytes # 0.9 K/mcL (0.6-4.6); Lymphocytes % 4.6 %; Mean Corpuscular HGB Conc 33.6 g/dL (31.6-35.5); Mean Corpuscular Hemoglobin 27.8 pg (28.0-33.3); Mean Corpuscular Volume 82.9 fL (83.0-100.0); Monocytes # 0.8 K/mcL (0.0-1.3); Platelet Count 353 K/mcL (140-400); Red Blood Count 4.74 M/mcL (4.19-5.50); Red Cell Distribution Width 16.6 % (11.5-14.5); Segmented Neutrophils % 90.3 %
[2016-12-27] MEDS: *HR* Enoxaparin 40 MG/0.4 ML SYRINGE SQ SCH (06:04)
[2016-12-27 06:11] LABS: BUN/Creatinine Ratio 14 (6-26); Blood Urea Nitrogen 12 mg/dL (8-26); Calcium 9.6 mg/dL (8.6-10.8); Carbon Dioxide 24 mEq/L (19-29); Chloride 100 mEq/L (98-109); Glucose 275 mg/dL (70-99); Osmolality,Calculated 286 (280-300); Sodium 133 mEq/L (136-145); eGFR For African Americans > 60 (> 60); eGFR For Non-African Americans > 60 (> 60)
[2016-12-27 06:12] LABS: Potassium 4.8 mEq/L (3.5-4.5)
--- NOTE | 2016-12-27 11:29 | Infectious Disease Progress No ---
Date of Encounter: 12/27/16 Time of Encounter: 11:27 - Assessment and Plan (1) Severe sepsis Status: Acute The patient had three SIRS criteria plus lactic acidosis on admission. Likely secondary to right foot gangrene/abscess. Improved. The patient was febrile overnight, but is less tachycardic. WBC is stable. Lactic acidosis is resolved. Blood cultures drawn 12/25/16 at [facility] are NGTD x 2 sets. (2) Gangrene of right foot Status: Acute Location: Plantar aspect, submetatarsal #1, right foot. Causative organism unclear. Etiology unclear. The patient denies trauma or open lesion prior to admission. X-ray of the right foot showed extensive soft tissue gas. ESR > 130. CRP 242. Podiatry consulted. Status post bedside I & D. Cultures obtained and are negative. Status post I & D of right foot deep abscess 12/26/[address] Patton. Operative note reviewed. Infection penetrated the fascia. Intra-op cultures obtained and are pending. Continue wound care per podiatry's recommendations. Continue Zosyn 3.375 grams IV Q8H. Continue Vancomycin IV. Pharmacy to dose. Goal trough ~15. Duration of treatment depends on the clinical picture. Monitor renal function and for drug toxicity and dose-adjust antibiotics. (3) Foot abscess, right Status: Acute Location: Plantar aspect right foot. Causative organism unclear. Status post bedside I & D. Cultures are negative. Status post formal I & D 12/26/[address] Patton. Intra-op cultures are pending. Podiatry consulted and following. Continue antibiotics as above. (4) DM2 (diabetes mellitus, type 2) Status: Chronic Controlled with oral medications at home. HgbA1C pending. Blood sugars are still running in the 150s-250s. Recommend aggressive glucose monitoring and control to promote wound healing and prevent re-infection. Management per the primary team. Qualifiers: Qualified Code(s): E11.621 - Type 2 diabetes mellitus with foot ulcer; L97.509 - Non-pressure chronic ulcer of other part of unspecified foot with unspecified severity; L97.509 - Non-pressure chronic ulcer of other part of unspecified foot with unspecified severity; L97.509 - Non-pressure chronic ulcer of other part of unspecified foot with unspecified severity; L97.509 - Non -pressure chronic ulcer of other part of unspecified foot with unspecified severity (5) HTN (hypertension) Status: Chronic Qualifiers: Qualified Code(s): I10 - Essential (primary) hypertension (6) HLD (hyperlipidemia) Status: Chronic Qualifiers: Qualified Code(s): E78.2 - Mixed hyperlipidemia (7) History of illicit drug use Status: Acute HIV non-reactive. Hepatitis C antibody reactive. - Subjective Interval history: Patient seen and examined. No acute events noted overnight. Status post incision and drainage of the right foot deep abscess 12/26/[address] Patton. States that overall he doesn't feel very well and is concerned that he isn't receiving his home medications and his blood sugars are still high. He denies any fevers, chills, or rigors. Denies chest pain, shortness of breath, or cough. Denies nausea, vomiting, or diarrhea. States he has not had a BM since admission. Denies abdominal pain or urinary complaints. Denies oral thrush or new skin lesions. Complains of pain in his right foot at this time. Infect Dis PN-Objective Data - Labs CBC & Chem 7: 12/27/16 05:41 12/27/16 05:41 Labs: Laboratory Results - last 24 hr 12/26/16 12/26/16 12/26/16 11:50 14:40 22:26 WBC RBC Hgb Hct MCV MCH MCHC RDW Plt Count MPV Immature Gran % Seg Neutrophils % Lymphocytes % Monocytes % Eosinophils % Basophils % Neutrophils # Lymphocytes # Monocytes # Eosinophils # Basophils # Sodium Potassium Chloride Carbon Dioxide BUN Creatinine Est GFR ( Amer) Est GFR (Non-Af Amer) BUN/Creatinine Ratio Glucose POC Glucose 213 H 260 H Calculated Osmolality Calcium Hepatitis A IgM Ab Nonreactive Hep Bs Antigen Nonreactive Hep B Core IgM Ab Nonreactive Hepatitis C Ab Screen Reactive H HIV Ag/Ab Combo Qual Nonreactive 12/27/16 12/27/16 05:41 05:41 WBC 18.8 H RBC 4.74 Hgb 13.2 D Hct 39.3 MCV 82.9 L MCH 27.8 L MCHC 33.6 RDW 16.6 H Plt Count 353 MPV 10.0 Immature Gran % 0.9 Seg Neutrophils % 90.3 Lymphocytes % 4.6 Monocytes % 4.0 Eosinophils % 0.0 Basophils % 0.2 Neutrophils # 17.0 H Lymphocytes # 0.9 Monocytes # 0.8 Eosinophils # 0.0 Basophils # 0.0 Sodium 133 L Potassium 4.8 H D Chloride 100 Carbon Dioxide 24 BUN 12 Creatinine 0.86 Est GFR ( Amer) > 60 Est GFR (Non-Af Amer) > 60 BUN/Creatinine Ratio 14 Glucose 275 H POC Glucose Calculated Osmolality 286 Calcium 9.6 Hepatitis A IgM Ab Hep Bs Antigen Hep B Core IgM Ab Hepatitis C Ab Screen HIV Ag/Ab Combo Qual Cultures: Cultures 12/25/16 21:40 Wound Culture - Preliminary Right Foot No pathogens isolated. 12/26/16 18:07 Gram Stain - Final Right Foot Serology 12/26/16 Range/Units 14:40 Hepatitis A IgM Ab Nonreactive (Nonreactive) Hep Bs Antigen Nonreactive (Nonreactive) Hep B Core IgM Ab Nonreactive (Nonreactive) Hepatitis C Ab Screen Reactive H (Nonreactive) HIV Ag/Ab Combo Qual Nonreactive (Nonreactive) - Impressions Impressions Foot MRI 12/26/16 22:17 IMPRESSION: 1. Soft tissue defect along the plantar surface of the forefoot at the level of the 1st and 2nd metatarsal diaphysis. Heterogeneous material (3.1 x 1.7 x 1.6 cm) within the soft tissue defect may represent packing material. No convincing abscess or formed fluid collection. 2. No MRI evidence of osteomyelitis. 3. Extensive subcutaneous edema of the foot dorsum with edema and enhancement of the intrinsic foot musculature suggestive of myositis. D/ / 12/26/2016 22:58:25 Tomi Elmore MD / Elsa Larson Interpreting Provider: Tomi Elmore MD Exam - Constitutional Vitals: Temp Pulse Resp BP Pulse Ox 97.6 F 79 12 148/73 97 12/27/16 11:12 12/27/16 11:12 12/27/16 11:12 12/27/16 11:12 12/27/16 11:12 General appearance: average body habitus, cooperative, no acute distress - Head Head exam: Present: atraumatic, normal inspection, normocephalic - Eye Eye exam: Present: EOMI, normal appearance, PERRL Pupils: Present: normal accommodation - ENT ENT exam: Present: mucous membranes moist - Neck Neck exam: Present: normal inspection - Respiratory Respiratory exam: Present: CTAB. Absent: rales, respiratory distress, rhonchi, wheezes - Cardiovascular Cardiovascular exam: Present: RRR, +S1, +S2 - GI/Abdominal GI/Abdominal exam: Present: normal bowel sounds, soft. Absent: distended, tenderness - Extremities Exam Extremities exam: Present: pedal edema (1+ RLE), tenderness (right foot) Additional comments: right foot dressing soiled with old serosanguinous drainage. Pain noted with palpation of the foot. ROM not assessed due to pain. - Neurological Exam Neurological exam: Present: alert, oriented X3, no focal deficits - Psychiatric Psychiatric exam: Present: normal affect, normal mood - Skin Skin exam: Present: dry, intact, normal color, warm - VTE Documentation of Mechanical Device: Intermittent pneumatic compression device Consult Discharge Plan - Plan Additional Instructions: Patient will need follow-up with podiatry as soon as possible Referrals: Nargis Cruz, BEHAVIORAL HEALTH DIRECTOR [Primary Care Provider] - Prescriptions: Cefuroxime PO [Ceftin] 500 mg PO Q12HR 14 Days #28 tablet - Attending Attestation I examined this patient and my medical decision-making was reviewed with the Resident Physician. I agree with the documented findings, disposition and treatment plan as described except to the extent set forth below.
[2016-12-27] MEDS: Insulin LISPRO 300 UNITS/3 ML VIAL SQ SCH ×3 (12:32→16:50)
[2016-12-27] MEDS ORDERED: Vancomycin 1,500 MG in D5% in Water 250 ML IVPB SCH (13:00)
[2016-12-27 16:00] VITALS: BP 135/79
--- NOTE | 2016-12-27 17:28 | Discharge Summary ---
<Antonio Moreira - Last Filed: 12/27/16 17:21> Date of Encounter: 12/27/16 Time of Encounter: 17:21 - Discharge Diagnosis (1) Severe sepsis Priority: Primary Status: Acute (2) Foot abscess, right Priority: Primary Status: Acute (3) Gangrene of right foot Priority: Primary Status: Acute (4) DM2 (diabetes mellitus, type 2) Priority: Secondary Status: Chronic Qualifiers: Diabetes mellitus complication status: with skin complications Diabetes mellitus complication detail: with foot ulcer Diabetes mellitus long term care administrator insulin use: without long term care administrator use Qualified Code(s): E11.621 - Type 2 diabetes mellitus with foot ulcer; L97.509 - Non-pressure chronic ulcer of other part of unspecified foot with unspecified severity; L97.509 - Non- pressure chronic ulcer of other part of unspecified foot with unspecified severity; L97.509 - Non-pressure chronic ulcer of other part of unspecified foot with unspecified severity; L97.509 - Non-pressure chronic ulcer of other part of unspecified foot with unspecified severity (5) HTN (hypertension) Priority: Secondary Status: Chronic Qualifiers: Hypertension type: essential hypertension Qualified Code(s): I10 - Essential (primary) hypertension (6) DVT prophylaxis Priority: Secondary Status: Acute - Discharge Medications Prescriptions: Cefuroxime PO [Ceftin] 500 mg PO Q12HR 14 Days #28 tablet Home Medications: metFORMIN [Glucophage] 1,000 mg PO BIDWM 10/21/16 [History] Glimepiride [Amaryl] 4 mg PO DAILY 12/26/16 [History] Lisinopril [Zestril] 20 mg PO BID 12/26/16 [History] Simvastatin [Zocor] 20 mg PO HS 12/26/16 [History] Acetaminophen [Tylenol] 650 mg PO Q6HR PRN tablet 12/27/16 [Rx] Cefuroxime PO [Ceftin] 500 mg PO Q12HR 14 Days #28 tablet 12/27/16 [Rx] Allergies/Adverse Reactions: 3 Allergy/AdvReac Type Severity Reaction Status Date / Time No Known Allergies Allergy Verified 10/21/16 00:47 Procedures/tests Complete & Pending: Procedures Performed prior 72 hours Category Date Time Status MR foot RT wo/w con [MR] Routine MRI 10/09/17 22:17 Draft Date of admission: 12/25/16 19:12 Primary care physician: Govind De Consults: 12/25/16 20:11 Consult to Podiatry [CONS] Stat Consulting Provider: [facility] Reason for Consult: Acute Rt foor gas gangrene Call Completed: Yes 12/26/16 10:30 Consult to Security Director [CONS] Routine Reason for SW Consult: self pay, may have discharge needs 12/26/16 11:58 Consult to Infectious Diseases [CONS] Routine Consulting Provider: Diane Disease Aliya Reason for Consult: Consult requested per Podiatry Time Notified: 11:59 Call Completed: Yes Discharging clinician: Gordon Ram Anticipated date of discharge: 12/27/16 - Patient Status Disposition: Left Against Medical Advice Condition: Serious Functional capacity at discharge: wheelchair bound Overall status at discharge: patient is not back to baseline - Discharge Instructions Follow Up With: Nargis Cruz, TITUS [Primary Care Provider] - Additional Instructions: Patient will need follow-up with podiatry as soon as possible - Diet and Activity Activity: other (Do not place any weight on right foot. Wheelchair or bedrest) Diet: diabetic diet Hospital course: Mr. Ortega is a 41 year old male with history of HTN, HLD, DM2, Chronic R foot wound who presented to [facility] with swelling and pain in his right foot. He had been noticing increased swelling for for the past 10 days with progressively worsening pain for the past 2 days. Upon examination the patient was found to have a severe right foot ulcer on the plantar portion of his foot. Additionally he was found to have severe sepsis criteria, with elevated lactic acid. The patient was admitted to the medical floor for treatment. Podiatry saw the patient the night of admission Performed an incision and drainage at bedside, draining substantial fluid which had previously been under pressure at site of abscess with gas. The patient was started on IV antibiotics, infectious diseases was consulted. Podiatry return to the OR with the patient Safe for surgical debridement of the wound. They recommended that the patient received 6 weeks IV antibiotics and regular wound care. The patient's sepsis Has slowly improved. MRI was performed demonstrating soft tissue defect along the plantar surface of the forefoot at the level of first and second metatarsal diaphysis. There is no MRI evidence of osteomyelitis on hospital day 2, the patient determined that he no longer wanted to stay in the hospital. The patient was educated on the risks of leaving without IV antibiotics and proper surgical treatment, however decided to leave AGAINST MEDICAL ADVICE. He will be given 2 weeks oral antibiotics and is told to follow up with podiatry as soon as possible. The patient is advised not to bear any weight on the foot. - Time Spent with Patient Total time spent providing and/or coordinating discharge services: - Constitutional Vitals: Temp Pulse Resp BP Pulse Ox 98.1 F 83 18 135/79 96 12/27/16 15:55 12/27/16 15:55 12/27/16 15:55 12/27/16 15:55 12/27/16 15:55 General appearance: Present: A&O X 3, no acute distress, answers questions appropriately Exam: - Head Head exam: Present: atraumatic, normal inspection - Neck Neck exam general surgery: Present: supple - Respiratory Respiratory exam: Present: decreased breath sounds. Absent: rales, respiratory distress, rhonchi - Cardiovascular Cardiovascular exam: Present: RRR, +S1, +S2. Absent: systolic murmur - GI/Abdominal GI/Abdominal exam: Present: normal bowel sounds, soft. Absent: distended, rebound, rigid, tenderness - Extremities Exam Extremities exam: Present: tenderness. Absent: calf tenderness, pedal edema Additional comments: The foot is dressed with gauze that has blood soaking through. There is additional dressing overtop. There is erythema and warmth extending to 4 inches proximal of the ankle. - Expanded Lower Extremities Exam Foot/Toe exam: Present: swelling, tenderness (Rt foot distally) - Back Exam Back exam: Absent: CVA tenderness (L), CVA tenderness (R) - Psychiatric Psychiatric exam: Present: normal affect, normal mood - VTE Documentation of Mechanical Device: Intermittent pneumatic compression device <Gordon Ram P - Last Filed: 12/27/16 23:26> Date of Encounter: 12/27/16 Procedures/tests Complete & Pending: Procedures Performed prior 72 hours Category Date Time Status MR foot RT wo/w con [MR] Routine MRI 12/26/16 22:17 Draft Date of admission: 12/25/16 19:12 Primary care physician: Govind De Consults: 12/25/16 20:11 Consult to Podiatry [CONS] Stat Consulting Provider: [facility] Reason for Consult: Acute Rt foor gas gangrene Call Completed: Yes 12/26/16 10:30 Consult to Security Director [CONS] Routine Reason for SW Consult: self pay, may have discharge needs 12/26/16 11:58 Consult to Infectious Diseases [CONS] Routine Consulting Provider: Diane [facility] Reason for Consult: Consult requested per Podiatry Time Notified: 11:59 Call Completed: Yes Hospital course: Mr. Ortega is a 41 year old male - Time Spent with Patient Total time spent providing and/or coordinating discharge services: - Constitutional Vitals: Temp Pulse Resp BP Pulse Ox 98.1 F 83 18 135/79 96 12/27/16 15:55 12/27/16 15:55 12/27/16 15:55 12/27/16 15:55 12/27/16 15:55 - Attending Attestation I examined this patient and my medical decision-making was reviewed with the Resident Physician. I agree with the documented findings, disposition and treatment plan as described except to the extent set forth below. 41/M admitted with severe sepsis: foot ulcer likely source evaluated by Podiatry and Infectious diseases. Underwent surgery and need Possible IV abx for more than 4 weeks. patient realized that he has some important issues to take care which according to him more serous than his own health. he decided to leave hospital AMA. Abx prescription as above and I wrote pain pills only 7 tab ( seven). I myself spoke with patient and asked him to come back once his emergency issues resolve. his ride was waiting for him around 6.10 pm and he left hospital with cane.
[2016-12-28 19:29] LABS: Hemoglobin A1C 7.1 %
== END 2016-12-27 18:30 | disposition left against medical advice (07) | DRG 710 ==
LOC: 2NENU 19:12 → SUATTDRO 19:12
PROVIDERS: ADMIT Family Medicine; ATTEND Internal Medicine